=== PATIENT | male | born 1985 | race Caucasian/White ===

== ENCOUNTER 2016-05-24 23:37 | Emergency (ER) | payer BC ==
[~2016-05-24 23:37] MED LIST: NO HOME MEDS; VICODIN 5/500 T1 TAB PO
[2016-05-25 00:06] LABS: INFLUENZA A NEG (NEG); INFLUENZA B NEG (NEG)
== END 2016-05-25 00:30 | disposition home or self-care (01) ==
LOC: CFTX 23:37
PROVIDERS: Nurse Practitioner Family
DX: J02.0 Streptococcal pharyngitis (principal); J98.01 Acute bronchospasm; F17.210 Nicotine dependence, cigarettes, uncomplicated
CPT/HCPCS: 87804; 87880; 94640; 99283